=== PATIENT | male | born 1955 | race Caucasian/White ===

== ENCOUNTER 2016-11-23 07:39 | Emergency (ER) | payer BC ==
[~2016-11-23] VITALS: Ht 193 cm; Wt 155.1 kg
[~2016-11-23 07:39] MED LIST: ASPIR-LOW81 MG PO; ATORVASTATIN CA80 MG PO; CLOPIDOGREL75 MG PO; LISINOPRIL5 MG PO; LOPRESSOR25 MG PO; LYRICA75 MG PO; NICOTINE PATCH1 EAC2 TD; NITROSTAT0.4 MG SL; TREXALL7.5 MG PO
[2016-11-23 08:20] LABS: HEMATOCRIT 47.4 % (38.0-50.0); MCHC 33.1 G/DL (30.0-36.0); MCV 90.6 FL (86-99); MEAN PLAT.VOLUME 9.4 uM^3 (9.0-12.4); PLATELET COUNT 250 K/uL (156-360); RBC DIS.WIDTH-SD 42.3 % (39-53); RED BLOOD COUNT 5.23 M/uL (4.00-5.50); WHITE BLOOD COUNT 10.9 K/uL (4.1-10.2)
[2016-11-23 08:45] LABS: TROP-I INTERPRETATION NEGATIVE; TROPONIN-I < 0.01 ng/mL (0.0-0.30)
[2016-11-23 08:46] LABS: CHLORIDE 108 mEq/L (99-109); POTASSIUM 3.9 mEq/L (3.7-5.4); SODIUM 142 mEq/L (136-147)
[2016-11-23 08:50] LABS: ANION GAP 8 MEQ/L (2-14)
[2016-11-23 08:51] LABS: TOTAL BILIRUBIN 0.7 mg/dL (0.0-1.0)
[2016-11-23 08:52] LABS: GFR ESTIMATE (CALCULATED) > 59 mL/min/
[2016-11-23 08:56] LABS: GLUCOSE 95 mg/dL (70-99)
[2016-11-23 09:00] LABS: ALKALINE PHOSPHATASE 89 IU/L (3-129)
[2016-11-23 09:01] LABS: UREA NITROGEN (BUN) 14 mg/dL (9-23)
[2016-11-23 11:09] LABS: TROP-I INTERPRETATION NEGATIVE; TROPONIN-I < 0.01 ng/mL (0.0-0.30)
[2016-11-23] MEDS ORDERED: PROAIR HFA8.5 GM IH (11:47)
[2016-11-23] MEDS ORDERED: MUCUS ER600 MG PO (11:47)
[2016-11-23] MEDS ORDERED: ROBITUSSIN NIG118 ML PO (11:47)
[2016-11-23 12:01] VITALS: BP 137/59
== END 2016-11-23 12:02 | disposition home or self-care (01) ==
LOC: EME 07:39
PROVIDERS: Nurse Practitioner Family
DX: J20.9 Acute bronchitis, unspecified (principal); R07.89 Other chest pain; G47.30 Sleep apnea, unspecified; Z99.81 Dependence on supplemental oxygen; F12.90 Cannabis use, unspecified, uncomplicated; F15.90 Other stimulant use, unspecified, uncomplicated; M06.9 Rheumatoid arthritis, unspecified; F17.200 Nicotine dependence, unspecified, uncomplicated; Z71.6 Tobacco abuse counseling; Z95.5 Presence of coronary angioplasty implant and graft
CPT/HCPCS: 71020; 80053; 84484; 85027; 93005; 94640; 99281; 99284